=== PATIENT | female | born 1960 | race Caucasian/White ===

== ENCOUNTER 2021-04-26 12:19 | Emergency (ER) | payer BC ==
[~2021-04-26] VITALS: Ht 157.5 cm; Wt 51.7 kg
[2021-04-26] MEDS ORDERED: BACTRIM DS TAB1 EACH PO (18:39)
== END 2021-04-26 20:00 | disposition home or self-care (01) ==
LOC: ER 12:19
DX: R10.9 Unspecified abdominal pain (principal); Z03.818 Encounter for observation for suspected exposure to other biological agents ruled out